=== PATIENT | female | born 1950 | race Caucasian/White ===

== ENCOUNTER 2022-02-04 17:32 | Inpatient (IN) | payer MEDICARE, OTHER ==
[~2022-02-04] VITALS: Ht 177.8 cm; Wt 54.2 kg
[2022-02-04] MEDS ORDERED: ATOR20TA PO (18:17)
[2022-02-04] MEDS ORDERED: ONDA-104 PO (18:17)
[2022-02-04] MEDS ORDERED: ASPI81TA31 PO (18:17)
[2022-02-04] MEDS ORDERED: ASCO500C18 PO (18:17)
[2022-02-04] MEDS ORDERED: METO-358 PO (18:17)
[2022-02-04] MEDS ORDERED: CLOP75TA33 PO (18:17)
[2022-02-04] MEDS ORDERED: PANT40TA49 PO (18:17)
--- NOTE | 2022-02-04 21:50 | NUR ---
pt is placed in room 4a pt was able to ambulate.
[2022-02-04] MEDS ORDERED: ALBUTEROL SULFATE 2.5 MG/3 ML NEBU NEB ONE (22:00)
[2022-02-04] MEDS ORDERED: methylPREDNISolone SOD SUCC 125 MG/2 ML VIAL IV ONE (22:00)
[2022-02-04] MEDS ORDERED: ALBUTEROL SULFATE 2.5 MG/3 ML NEBU ONE (22:08)
[2022-02-04] MEDS ORDERED: methylPREDNISolone SOD SUCC 125 MG/2 ML VIAL ONE (22:14)
[2022-02-04 22:24] LABS: HEMATOCRIT 31.5 % (31.2-41.9); MEAN CORPUSCULAR HEMOGLOBIN 25.5 uug (24.7-32.8); MEAN CORPUSCULAR VOLUME 80.2 fL (75.5-95.3); PLATELET COUNT (AUTO) 373 K/uL (179-408)
[2022-02-04 22:43] LABS: ALANINE AMINOTRANSFERASE 8 U/L (14-59); ALKALINE PHOSPHATASE 91 U/L (50-136); ASPARTATE AMINOTRANSFERASE 7 U/L (15-37); BILIRUBIN,DIRECT 0.1 mg/dL (0.0-0.2); BILIRUBIN,TOTAL 0.3 mg/dL (0.2-1.0); CARBON DIOXIDE 28 mmol/L (21-32); CREATININE 0.7 mg/dL (0.6-1.3); GLUCOSE 108 mg/dL (74-106); TOTAL PROTEIN, SERUM 6.8 g/dL (6.4-8.2); UREA NITROGEN, BLOOD 15 mg/dL (7-18)
[2022-02-04] MEDS ORDERED: FUROSEMIDE 40 MG/4 ML VIAL IV ONE (23:30)
[2022-02-04] MEDS ORDERED: ASPIRIN EC 81 MG TABLET.DR PO SCH (23:30)
[2022-02-04] MEDS ORDERED: ASPIRIN 81 MG TAB.CHEW ONE (23:46)
[2022-02-04 23:52] LABS: CHLORIDE 101 mmol/L (98-107); POTASSIUM 3.9 mmol/L (3.5-5.1)
--- NOTE | 2022-02-05 01:01 | NUR ---
emergency contact len irwin called from number [phone] and would like info to be updated for this.
--- NOTE | 2022-02-05 02:23 | NUR ---
per er export documents clerk waiting on insurance to check if pt can be admitted at this hospital.
--- NOTE | 2022-02-05 06:01 | NUR ---
Rosalind capone for panel call
--- NOTE | 2022-02-05 06:28 | NUR ---
Dr. Taylor on the phone with Rosalind Medeiros NP
[2022-02-05] MEDS ORDERED: ONDANSETRON HCL 4 MG TABLET PO PRN (06:30)
--- NOTE | 2022-02-05 06:33 | NUR ---
Tele bed assigned, [phone]. Will take patient next shift.
[2022-02-05] MEDS ORDERED: REMEDY ESSENTIAL ZINC PASTE 113 GM TP PRN (06:45)
[2022-02-05] MEDS ORDERED: MAGNESIUM HYDROXIDE 30 ML LIQUID UDC PO PRN (06:45)
[2022-02-05] MEDS ORDERED: ONDANSETRON 4 MG/2 ML VIAL IV PRN (06:45)
[2022-02-05] MEDS ORDERED: levoFLOXacin 500 MG/D5W 500 MG in PREMIXED 1 EACH IV SCH (06:45)
[2022-02-05] MEDS ORDERED: PANTOPRAZOLE SODIUM 40 MG TABLET.DR PO ONE (08:15)
[2022-02-05] MEDS ORDERED: levoFLOXacin 500 MG/D5W 100 ML ONE (08:15)
[2022-02-05] MEDS ORDERED: methylPREDNISolone SOD SUCC 40 MG/ML VIAL ONE (08:15)
[2022-02-05] MEDS: PANTOPRAZOLE SODIUM 40 MG TABLET.DR PO SCH (08:20)
[2022-02-05] MEDS: methylPREDNISolone SOD SUCC 40 MG/ML VIAL IV SCH ×3 (08:43→21:51)
--- NOTE | 2022-02-05 08:56 | NUR ---
PT AWAKE, AMBULATED TO BATHROOM, DIAPER CHANGED. TOLERATED BREAKFAST WELL.
--- NOTE | 2022-02-05 08:58 | NUR ---
PT STILL IN ER AWAITING TRANSFER TO TELEMETRY; PT ROOM IS AVAILABLE BUT STAFF STILL REPORTS THEY ARE NOT READY TO TAKE PT; RN ASSEMBLER ENGINE NOTIFIED ABOUT SITUATION. PT GETTING IMPATIENT ABOUT BEING STILL IN THE ER INSTEAD OF PT RM.
[2022-02-05] MEDS ORDERED: METOPROLOL SUCCINATE PO SCH (09:00)
[2022-02-05] MEDS ORDERED: Medication Not On Formulary EA (Ascorbic Acid (Vitamin C) 1 CAP) PO SCH (09:00)
--- NOTE | 2022-02-05 09:07 | NUR ---
REPORT GIVEN TO PEE VO.
[2022-02-05 09:30] VITALS: BP 116/59
--- NOTE | 2022-02-05 09:30 | NUR ---
ADMITTED FROM ER A 71 YO FEMALE WITH ADM DX OF CHF, EXACERBATION COPD AWAKE ALERT AND ORIENTED X3, DENIES SOB OR CHEST PAIN. ROUTINE ADMISSION ASSESSMENT INITIATED. MADE AWARE OF ADMISSION SR ON MONITOR
[2022-02-05] MEDS: CLOPIDOGREL 75 MG TABLET PO SCH (09:48)
[2022-02-05] MEDS: ASPIRIN 81 MG TAB.CHEW PO SCH (09:48)
[2022-02-05 12:00] VITALS: BP 133/74
[2022-02-05] MEDS ORDERED: METO-356 PO (13:18)
--- NOTE | 2022-02-05 13:32 | NUR ---
Social work consult was requested for a patient on medsurg for pre-admission living arrangement. Patient is 71-year-old female admitted to the hospital for congestive heart failure. Patient is alert and oriented X3. Patient could not state the date. Patient presents with congruent mood and full range affect. Patient presents with good judgement and insight. Patient states her primary salesperson flowers is daughters girlfriend, Karly Hurtado ([phone]) and they have a good relationship. Patient also has a supportive brother, Stephen Carranza ([phone]) who lives in [place] and they have a good relationship as well. Patient states that she has been living with her daughter, Mara in an apartment in [place]. 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 Patient has a walker at home and is not currently driving. Patient denies a history of substance abuse. Patient denies a history of psychiatric diagnosis. Patient denies suicidal or homicidal ideation. Patient is open to being discharged to a [place] [facility] facility. This fiction writer spoke with James casework supervisor who will follow up with discharge plan.
[2022-02-05] MEDS: METOPROLOL SUCCINATE XL 25 MG TAB.SR.24H PO SCH (14:33)
[2022-02-05 16:00] VITALS: BP 128/67
--- NOTE | 2022-02-05 16:55 | NUR ---
RESTING COMFORTABLY NO SIGNS OR C/O SOB. SR 86 ON MONITOR
[2022-02-05 20:00] VITALS: BP 120/62
--- NOTE | 2022-02-05 20:00 | NUR ---
PT received resting in bed without distress. Resp is even and unlabored.O2 at 2l/min via NC. pt is a. PT First bag of ivf fl with 20 meq KCL IS infusing as ordered, via L AC. Duran to gravity, Bed is in the lowest position and side rails are up times 4, Aspiration precaution im place. Mitten restraints removed and reapply as per .
[2022-02-05] MEDS: ATORVASTATIN 20 MG TABLET PO SCH (21:51)
--- NOTE | 2022-02-05 22:08 | NUR ---
PT T=ISAWAKE. ALERT AND ORIENTED TIMES 4. PT REFUSES MOM. PT STATES , "I DONT NEED A ;LAXATIVE,HAD A SMALL BM TODAY DONT EACH MUCH AND IS NOT CONSTIPATED." MOM NOT GIVEN.
[2022-02-06 04:00] VITALS: BP 126/70
[2022-02-06 06:50] LABS: HEMATOCRIT 28.4 % (31.2-41.9); MEAN CORPUSCULAR HEMOGLOBIN 25.9 uug (24.7-32.8); MEAN CORPUSCULAR VOLUME 79.4 fL (75.5-95.3); PLATELET COUNT (AUTO) 353 K/uL (179-408)
[2022-02-06] MEDS: methylPREDNISolone SOD SUCC 40 MG/ML VIAL IV SCH ×3 (06:51→22:10)
[2022-02-06] MEDS: PANTOPRAZOLE SODIUM 40 MG TABLET.DR PO SCH (06:51)
[2022-02-06 07:25] LABS: BILIRUBIN,TOTAL 0.2 mg/dL (0.2-1.0); CREATININE 0.7 mg/dL (0.6-1.3); MAGNESIUM 2.1 mg/dL (1.8-2.4); PHOSPHOROUS 4.2 mg/dL (2.5-4.9); POTASSIUM 4.4 mmol/L (3.5-5.1); TOTAL PROTEIN, SERUM 6.3 g/dL (6.4-8.2)
[2022-02-06 07:29] LABS: THYROID STIMULATING HORMONE 0.426 mIU/mL (0.358-3.740)
--- NOTE | 2022-02-06 07:30 | NUR ---
PT IS AWAKE AND IS ALERT AND ORIENTED THIS AM. MEDICATED WITH SOLUMEDROL ORDERED AND PROTONIX ORDERED. PT IS CURTIS NO APPARENT DISTRESS.
--- NOTE | 2022-02-06 08:02 | NUR ---
AWAKE ALERT AND ORIENTED X3 IN BED WITH NO SS OF PAIN OR DISTRESS. SR ON MONITOR
[2022-02-06] MEDS: ASCORBIC ACID 500 MG TABLET PO SCH (09:19)
[2022-02-06] MEDS: ASPIRIN 81 MG TAB.CHEW PO SCH (09:19)
[2022-02-06] MEDS: CLOPIDOGREL 75 MG TABLET PO SCH (09:19)
[2022-02-06] MEDS: levoFLOXacin 500 MG/D5W 500 MG in PREMIXED 1 EACH IV SCH (09:24)
[2022-02-06] MEDS: METOPROLOL SUCCINATE XL 25 MG TAB.SR.24H PO SCH (09:25)
[2022-02-06] MEDS: CYANOCOBALAMIN 1000 MCG/ML VIAL IM SCH (09:30)
[2022-02-06 11:08] VITALS: BP 142/69
--- NOTE | 2022-02-06 12:00 | NUR ---
SEEN BY PHYSICAL THERAPY FOR THERAPEUTIC EXERCISES SEE NOTES
[2022-02-06] MEDS: PROTEIN SUPPLEMENT (PROSTAT) 30 ML LIQUID PO SCH (15:00)
[2022-02-06] MEDS: GLUCERNA SHAKE 237 ML CAN PO SCH ×2 (15:00→18:07)
[2022-02-06 15:12] VITALS: BP 144/65
--- NOTE | 2022-02-06 19:00 | NUR ---
RECEIVED PATIENT IN BED. AAOX4, NOTED TO BE UPSET AND REPORTED THAT SHE HAS BEEN REQUESTING FOR NICOTINE PATCH. FAMILY AT BEDSIDE, FRUSTRATED AND YELLING AT NURSE. NURSE ATTEMPTED TO DE-ESCALATE AND ADVISED PATIENT MD WILL BE NOTIFIED, PATIENT VERBALIZED UNDERSTANDING. IV ACCESS PATENT AND INTACT. SAFETY PRECAUTIONS INITIATED. WILL CONTINUE TO MONITOR.
--- NOTE | 2022-02-06 19:20 | NUR ---
DISCHARGE PLANNING INITIATED, SEE WEBSITE ADMIN NOTES
--- NOTE | 2022-02-06 19:37 | NUR ---
PATIENT REQUESTING FOR NICOTINE PATCH. PATIENT ADVISED SHE SMOKES MORE THAN A PACK OF CIGARETTES A DAY. NOTIFIED DR. GONZALEZ. DR GONZALEZ ORDERED NICOTINE PATCH, TD, 21MG/Q24.
[2022-02-06] MEDS: ATORVASTATIN 20 MG TABLET PO SCH (20:02)
[2022-02-06] MEDS: NICOTINE 21 MG/24HR PATCH TD SCH (20:02)
[2022-02-06 20:39] VITALS: BP 131/66
[2022-02-07 04:32] VITALS: BP 144/76
[2022-02-07] MEDS: methylPREDNISolone SOD SUCC 40 MG/ML VIAL IV SCH ×3 (05:42→21:42)
[2022-02-07] MEDS: PANTOPRAZOLE SODIUM 40 MG TABLET.DR PO SCH (06:02)
--- NOTE | 2022-02-07 06:19 | NUR ---
PATIENT SLEPT THROUGH THE NIGHT WITH NO COMPLAINTS. DENIES SOB, CHEST PAIN OR DIZZINESS AT THIS TIME. COMPLIANT WITH MEDICATION REGIMEN. IV ACCESS PATENT AND INTACT. SAFETY PRECAUTIONS MAINTAINED. WILL ENDORSE TO DAY SHIFT.
[2022-02-07] MEDS: PROTEIN SUPPLEMENT (PROSTAT) 30 ML LIQUID PO SCH (09:00)
[2022-02-07] MEDS: ASPIRIN 81 MG TAB.CHEW PO SCH (09:00)
[2022-02-07] MEDS: CLOPIDOGREL 75 MG TABLET PO SCH (09:00)
[2022-02-07] MEDS: GLUCERNA SHAKE 237 ML CAN PO SCH ×2 (09:00→16:14)
[2022-02-07] MEDS: ASCORBIC ACID 500 MG TABLET PO SCH (09:01)
[2022-02-07] MEDS: NICOTINE 21 MG/24HR PATCH TD SCH (09:01)
[2022-02-07] MEDS: CYANOCOBALAMIN 1000 MCG/ML VIAL IM SCH (09:01)
[2022-02-07] MEDS: levoFLOXacin 500 MG/D5W 500 MG in PREMIXED 1 EACH IV SCH (09:02)
[2022-02-07] MEDS: METOPROLOL SUCCINATE XL 25 MG TAB.SR.24H PO SCH (09:14)
[2022-02-07 11:11] VITALS: BP 148/83
--- NOTE | 2022-02-07 11:46 | NUR ---
Pt is a/o x 4, ambulatory with standby assist. Pt is cooperative with care. Midline ordered and placed, right ua 18g. intact and patent. peripheral iv removed due to leaking. Comfort measures provided, call light within reach. Will continue to monitor.
[2022-02-07 15:17] VITALS: BP 144/52
[2022-02-07 15:19] VITALS: BP 127/69
--- NOTE | 2022-02-07 19:00 | NUR ---
pT COMPLAINED OF DIFFICULTY CATCHING BREATH, NOTIFIED MD. VITALS STABLE SPO2 98% ON ROOM AIR. MD PLACED ORDER FOR PRN BREATHING TX AND SCHEDULED DOSE OF BREO. EDUCATED PT ON BREATHING. WILL ENDORSE TO WELFARE CENTRE MANAGER
--- NOTE | 2022-02-07 19:40 | NUR ---
RECEIVED PATIENT IN BED. AAOX4. PATIENT COMPLAINED OF SHORTNESS OF BREATH. O2 SAT 98%. ADVISED PATIENT TO DO DEEP BREATHING WHILE WAITING FOR RESPIRATORY THERAPIST. IV ACCESS PATENT AND INTACT. SAFETY PRECAUTIONS INITIATED. WILL CONTINUE TO MONITOR.
[2022-02-07] MEDS: IPRATROPIUM BROMIDE 0.5 MG/2.5 ML NEBU NEB PRN (19:58)
[2022-02-07] MEDS: ALBUTEROL SULFATE 2.5 MG/3 ML NEBU NEB PRN (19:59)
[2022-02-07] MEDS: ATORVASTATIN 20 MG TABLET PO SCH (20:41)
[2022-02-07 20:47] VITALS: BP 131/65
[2022-02-07] MEDS ORDERED: FLUTICASONE/VILANTEROL 1 EACH BLST.W.DEV ONE (21:38)
[2022-02-07] MEDS: FLUTICASONE/VILANTEROL 1 EACH BLST.W.DEV INH SCH (21:54)
[2022-02-08] MEDS: ACETAMINOPHEN 325 MG TABLET PO PRN (02:13)
[2022-02-08 04:45] VITALS: BP 125/69
[2022-02-08] MEDS: methylPREDNISolone SOD SUCC 40 MG/ML VIAL IV SCH ×2 (05:35→14:19)
--- NOTE | 2022-02-08 05:53 | NUR ---
PATIENT SLEPT INTERMITTENTLY THROUGH THE NIGHT. COMPLIANT WITH MEDICATION REGIMEN. NO ACUTE DISTRESS NOTED AT THIS TIME. ALL NEEDS ATTENDED TO AND MET. SAFETY AND ASPIRATION PRECAUTIONS MAINTAINED.
[2022-02-08 06:37] LABS: HEMATOCRIT 28.4 % (31.2-41.9); MEAN CORPUSCULAR HEMOGLOBIN 25.9 uug (24.7-32.8); MEAN CORPUSCULAR VOLUME 80.5 fL (75.5-95.3); PLATELET COUNT (AUTO) 316 K/uL (179-408)
[2022-02-08 06:52] LABS: CREATININE 0.7 mg/dL (0.6-1.3); PHOSPHOROUS 3.5 mg/dL (2.5-4.9); POTASSIUM 4.3 mmol/L (3.5-5.1)
[2022-02-08] MEDS: PROTEIN SUPPLEMENT (PROSTAT) 30 ML LIQUID PO SCH (07:56)
[2022-02-08] MEDS: GLUCERNA SHAKE 237 ML CAN PO SCH ×2 (07:56→16:16)
[2022-02-08] MEDS: ASCORBIC ACID 500 MG TABLET PO SCH (08:02)
[2022-02-08] MEDS: CLOPIDOGREL 75 MG TABLET PO SCH (08:02)
[2022-02-08] MEDS: NICOTINE 21 MG/24HR PATCH TD SCH (08:02)
[2022-02-08] MEDS: METOPROLOL SUCCINATE XL 25 MG TAB.SR.24H PO SCH (08:02)
[2022-02-08] MEDS: CYANOCOBALAMIN 1000 MCG/ML VIAL IM SCH (08:03)
[2022-02-08] MEDS: levoFLOXacin 500 MG/D5W 500 MG in PREMIXED 1 EACH IV SCH (08:22)
[2022-02-08] MEDS: FLUTICASONE/VILANTEROL 1 EACH BLST.W.DEV INH SCH (08:30)
[2022-02-08] MEDS ORDERED: SOD FERRIC GLUC COMPLX/SUCROSE 125 MG in IV NORMAL SALINE 100 ML IV SCH (10:00)
[2022-02-08 11:35] VITALS: BP 131/71
[2022-02-08 16:11] VITALS: BP 131/80
[2022-02-08 20:00] VITALS: BP 157/68
[2022-02-08] MEDS: ATORVASTATIN 20 MG TABLET PO SCH (22:42)
[2022-02-09 04:00] VITALS: BP 145/72
--- NOTE | 2022-02-09 05:27 | NUR ---
Slept throughout the night No distress noted. Able to make needs known. Able to ambulate with assist. Safety maintained throughout shift. Will endorse to day shift.
[2022-02-09] MEDS: FLUTICASONE/VILANTEROL 1 EACH BLST.W.DEV INH SCH (08:16)
[2022-02-09] MEDS: NICOTINE 21 MG/24HR PATCH TD SCH (08:16)
[2022-02-09] MEDS: CLOPIDOGREL 75 MG TABLET PO SCH (08:17)
[2022-02-09] MEDS: CYANOCOBALAMIN 1000 MCG/ML VIAL IM SCH (08:17)
[2022-02-09] MEDS: ASCORBIC ACID 500 MG TABLET PO SCH (08:17)
[2022-02-09] MEDS: PROTEIN SUPPLEMENT (PROSTAT) 30 ML LIQUID PO SCH (08:17)
[2022-02-09] MEDS: METOPROLOL SUCCINATE XL 25 MG TAB.SR.24H PO SCH (08:17)
[2022-02-09] MEDS: GLUCERNA SHAKE 237 ML CAN PO SCH ×2 (08:17→16:34)
[2022-02-09] MEDS: levoFLOXacin 500 MG TABLET PO SCH (08:20)
[2022-02-09] MEDS: methylPREDNISolone SOD SUCC 40 MG/ML VIAL IV SCH ×2 (08:43→20:27)
[2022-02-09] MEDS ORDERED: SOD FERRIC GLUC COMPLX/SUCROSE 125 MG in IV NORMAL SALINE 100 ML IV ONE (10:45)
[2022-02-09 11:01] VITALS: BP 19/47
[2022-02-09 11:30] VITALS: BP 116/72
[2022-02-09 15:13] VITALS: BP 110/75
[2022-02-09] MEDS: IPRATROPIUM BROMIDE 0.5 MG/2.5 ML NEBU NEB PRN (19:25)
[2022-02-09] MEDS: ALBUTEROL SULFATE 2.5 MG/3 ML NEBU NEB PRN (19:25)
[2022-02-09 20:00] VITALS: BP 115/84
[2022-02-09] MEDS: ATORVASTATIN 20 MG TABLET PO SCH (20:27)
[2022-02-10] MEDS: ACETAMINOPHEN 325 MG TABLET PO PRN (03:14)
--- NOTE | 2022-02-10 05:55 | NUR ---
Slept throughout the night. No distress noted. Able to make needs known. Able to ambulate. Will endorse to day shift
[2022-02-10] MEDS: PROTEIN SUPPLEMENT (PROSTAT) 30 ML LIQUID PO SCH (08:00)
[2022-02-10] MEDS: levoFLOXacin 500 MG TABLET PO SCH (08:05)
[2022-02-10] MEDS: ASCORBIC ACID 500 MG TABLET PO SCH (08:05)
[2022-02-10] MEDS: GLUCERNA SHAKE 237 ML CAN PO SCH ×2 (08:05→17:19)
[2022-02-10] MEDS: NICOTINE 21 MG/24HR PATCH TD SCH (08:05)
[2022-02-10] MEDS: CLOPIDOGREL 75 MG TABLET PO SCH (08:05)
[2022-02-10] MEDS: METOPROLOL SUCCINATE XL 25 MG TAB.SR.24H PO SCH (08:05)
[2022-02-10] MEDS: CYANOCOBALAMIN 1000 MCG/ML VIAL IM SCH (08:06)
[2022-02-10] MEDS: methylPREDNISolone SOD SUCC 40 MG/ML VIAL IV SCH (08:24)
[2022-02-10] MEDS: FLUTICASONE/VILANTEROL 1 EACH BLST.W.DEV INH SCH (09:14)
[2022-02-10] MEDS ORDERED: FLUT1BLS INH (10:43)
[2022-02-10] MEDS ORDERED: NICO-780 TD (10:43)
[2022-02-10] MEDS ORDERED: PRED50TA PO (10:43)
[2022-02-10] MEDS ORDERED: ALBU2.5V7 NEB (10:43)
[2022-02-10 11:15] VITALS: BP 104/57
[2022-02-10 15:07] VITALS: BP 153/74
--- NOTE | 2022-02-10 19:11 | NUR ---
dc orders received noted and carried out,dc instruction and education given to the pt.dc midline per md orders.pt left the facility via ambulances in stable condition ,3 times call the [facility] for report no body answers leave the massage and phone number with cinder pit crane operator
== END 2022-02-10 19:25 | DRG 191 ==
LOC: ER 17:40 → TELE3 02-05 09:09 → MEDSURG3 02-06 10:30
PROVIDERS: ADMIT Internal Medicine; ATTEND Internal Medicine
PROC: 05HB33Z Insertion of Infusion Device into Right Basilic Vein, Percutaneous Approach (ICD-10-PCS; principal; 2022-02-07)
DX: J44.1 Chronic obstructive pulmonary disease with (acute) exacerbation (principal); D68.59 Other primary thrombophilia; J98.11 Atelectasis; E87.1 Hypo-osmolality and hyponatremia; J44.0 Chronic obstructive pulmonary disease with (acute) lower respiratory infection; J20.8 Acute bronchitis due to other specified organisms; F17.210 Nicotine dependence, cigarettes, uncomplicated; Z99.81 Dependence on supplemental oxygen; Z20.822 Contact with and (suspected) exposure to COVID-19; I25.5 Ischemic cardiomyopathy; M11.261 Other chondrocalcinosis, right knee; I34.0 Nonrheumatic mitral (valve) insufficiency; Z59.01 Sheltered homelessness; M06.9 Rheumatoid arthritis, unspecified; I11.0 Hypertensive heart disease with heart failure; I50.9 Heart failure, unspecified; I25.10 Atherosclerotic heart disease of native coronary artery without angina pectoris; Z95.1 Presence of aortocoronary bypass graft; Z74.09 Other reduced mobility; E53.8 Deficiency of other specified B group vitamins; M17.11 Unilateral primary osteoarthritis, right knee; Z79.02 Long term (current) use of antithrombotics/antiplatelets; D50.9 Iron deficiency anemia, unspecified; R09.02 Hypoxemia; Z79.82 Long term (current) use of aspirin; Z90.710 Acquired absence of both cervix and uterus; Z90.49 Acquired absence of other specified parts of digestive tract; E86.1 Hypovolemia
CPT/HCPCS: 36415; 71045; 82378; 83550; 83735; 84100; 84443; 84484; 85025; 93005; 93307; 94664; 97161; A4663; G0378; J1940; J1956; J2916; J2920; J2930; J3420; J3590

== ENCOUNTER 2024-01-10 23:21 | Inpatient (IN) | payer MEDICARE, OTHER ==
[~2024-01-10] VITALS: Ht 177.8 cm; Wt 57.3 kg
[2024-01-10] MEDS: CLONIDINE HCL 0.1 MG TABLET PO ONE (00:05)
[~2024-01-10 23:21] MED LIST: ALBU2.5V7 NEB; ASCO500C18 PO; ASPI81TA31 PO; ATOR20TA PO; CLOP75TA33 PO; FLUT1BLS INH; METO-356 PO; NICO-780 TD; ONDA-104 PO; PANT40TA49 PO; PRED50TA PO
[2024-01-10 23:51] LABS: BASOPHILS % (AUTO) 0.7 % (0.0-2.0); EOSINOPHILS # (AUTO) 0.3 K/uL (0.0-0.7); EOSINOPHILS % (AUTO) 4.2 % (0.0-7.0); HEMATOCRIT 36.2 % (31.2-41.9); LYMPHOCYTES # (AUTO) 2.2 K/uL (0.8-4.8); LYMPHOCYTES % (AUTO) 31.3 % (20.5-51.5); MEAN CORPUSCULAR HEMOGLOBIN 30.4 uug (24.7-32.8); MEAN CORPUSCULAR HGB CONC 33 g/dL (32.3-35.6); MEAN CORPUSCULAR VOLUME 91.2 fL (75.5-95.3); MONOCYTES # (AUTO) 1.1 K/uL (0.1-1.30); MONOCYTES % (AUTO) 15.8 % (0.0-11.0); NEUTROPHILS # (AUTO) 3.4 K/uL (1.8-8.9); PLATELET COUNT (AUTO) 240 K/uL (179-408); RED BLOOD CELL COUNT(AUTO) 3.97 MIL/uL (3.63-4.92); RED CELL DISTRIBUTION WIDTH 13.8 % (12.3-17.7); WHITE BLOOD COUNT (AUTO) 7.1 K/uL (3.8-11.8)
[2024-01-10 23:52] LABS: DIFFERENTIAL COMMENT 1
[2024-01-10] MEDS ORDERED: CLONIDINE HCL 0.1 MG TABLET ONE (23:57)
[2024-01-11 00:08] LABS: CALCIUM 9.2 mg/dL (8.5-10.1); CARBON DIOXIDE 28 mmol/L (21-32); CHLORIDE 99 mmol/L (98-107); CREATININE 0.9 mg/dL (0.6-1.3); GLUCOSE 100 mg/dL (74-106); SODIUM SERUM 136 mmol/L (136-145); UREA NITROGEN, BLOOD 21 mg/dL (7-18)
[2024-01-11 00:14] LABS: ALANINE AMINOTRANSFERASE 24 U/L (14-59); ALBUMIN 3.9 g/dL (3.4-5.0); ALKALINE PHOSPHATASE 119 U/L (50-136); ASPARTATE AMINOTRANSFERASE 10 U/L (15-37); BILIRUBIN,DIRECT 0.1 mg/dL (0.0-0.2); BILIRUBIN,TOTAL 0.4 mg/dL (0.2-1.0); TOTAL PROTEIN, SERUM 7.3 g/dL (6.4-8.2)
[2024-01-11] MEDS ORDERED: ACET325T53 PO (00:27)
[2024-01-11] MEDS ORDERED: CLON-418 PO (00:27)
[2024-01-11] MEDS ORDERED: METO50TA16 PO (00:27)
[2024-01-11] MEDS ORDERED: NA P133E RC (00:27)
[2024-01-11] MEDS ORDERED: FAMO40TA7 PO (00:27)
[2024-01-11] MEDS ORDERED: CHOL10005 PO (00:27)
[2024-01-11] MEDS ORDERED: HYDR-3972 PO (00:27)
[2024-01-11] MEDS ORDERED: PREG50CA PO (00:27)
[2024-01-11] MEDS ORDERED: MAGN30OR PO (00:27)
[2024-01-11] MEDS ORDERED: MELO-107 PO (00:27)
[2024-01-11] MEDS ORDERED: MULT-1045 PO (00:27)
[2024-01-11] MEDS ORDERED: LIDO30AD10 TP (00:27)
[2024-01-11 00:52] LABS: EOSINOPHILS % (MANUAL) 5 % (0-8); LYMPHOCYTES % (MANUAL) 31 % (20-40); MONOCYTES % (MANUAL) 15 % (2-10); NEUTROPHILS % (MANUAL) 49 % (42-75); PLATELET ESTIMATE ADEQUATE
[2024-01-11 00:53] LABS: ANISOCYTOSIS 1+
[2024-01-11] MEDS ORDERED: MAGNESIUM HYDROXIDE 30 ML LIQUID UDC PO PRN ×2 (03:15→12:45)
[2024-01-11] MEDS ORDERED: REMEDY ESSENTIAL ZINC PASTE 113 GM TP PRN (03:15)
[2024-01-11] MEDS ORDERED: ONDANSETRON 4 MG/2 ML VIAL IV PRN (03:15)
[2024-01-11 04:00] VITALS: BP 140/77; TEMP 98; O2SAT 95
[2024-01-11] MEDS: ENOXAPARIN SODIUM 40 MG/0.4 ML DISP.SYRIN SQ SCH (04:24)
[2024-01-11] MEDS: IV NS 1000 ML 1,000 ML IV PRN (04:53)
[2024-01-11] MEDS: PANTOPRAZOLE SODIUM 40 MG TABLET.DR PO SCH (06:06)
[2024-01-11 06:56] LABS: BASOPHILS # (AUTO) 0.1 K/UL (0.0-0.2); BASOPHILS % (AUTO) 1.1 % (0.0-2.0); EOSINOPHILS # (AUTO) 0.3 K/uL (0.0-0.7); HEMATOCRIT 34.6 % (31.2-41.9); HEMOGLOBIN 11.4 g/dL (10.9-14.3); LYMPHOCYTES # (AUTO) 1.6 K/uL (0.8-4.8); LYMPHOCYTES % (AUTO) 28.7 % (20.5-51.5); MEAN CORPUSCULAR HGB CONC 33 g/dL (32.3-35.6); MEAN CORPUSCULAR VOLUME 91.1 fL (75.5-95.3); MONOCYTES # (AUTO) 0.9 K/uL (0.1-1.30); MONOCYTES % (AUTO) 15.9 % (0.0-11.0); NEUTROPHILS # (AUTO) 2.7 K/uL (1.8-8.9); NEUTROPHILS % (AUTO) 48.3 % (38.5-71.5); PLATELET COUNT (AUTO) 236 K/uL (179-408); RED CELL DISTRIBUTION WIDTH 13.8 % (12.3-17.7); WHITE BLOOD COUNT (AUTO) 5.5 K/uL (3.8-11.8)
[2024-01-11 07:19] LABS: DIFFERENTIAL COMMENT 1
[2024-01-11 07:32] LABS: THYROID STIMULATING HORMONE 1.399 mIU/mL (0.358-3.740)
[2024-01-11 07:47] LABS: ALANINE AMINOTRANSFERASE 27 U/L (14-59); ALBUMIN 3.6 g/dL (3.4-5.0); ALKALINE PHOSPHATASE 97 U/L (50-136); ASPARTATE AMINOTRANSFERASE 5 U/L (15-37); BILIRUBIN,DIRECT 0.1 mg/dL (0.0-0.2); BILIRUBIN,TOTAL 0.4 mg/dL (0.2-1.0); CALCIUM 9.2 mg/dL (8.5-10.1); CARBON DIOXIDE 26 mmol/L (21-32); CHLORIDE 101 mmol/L (98-107); CREATININE 0.9 mg/dL (0.6-1.3); GLUCOSE 95 mg/dL (74-106); MAGNESIUM 2.2 mg/dL (1.8-2.4); PHOSPHOROUS 4.5 mg/dL (2.5-4.9); POTASSIUM 3.6 mmol/L (3.5-5.1); SODIUM SERUM 136 mmol/L (136-145); TOTAL PROTEIN, SERUM 6.9 g/dL (6.4-8.2); UREA NITROGEN, BLOOD 20 mg/dL (7-18)
[2024-01-11 08:20] LABS: LYMPHOCYTES % (MANUAL) 0 % (20-40); NEUTROPHILS % (MANUAL) 0 % (42-75)
[2024-01-11 09:28] LABS: *BILIRUBIN,URIN NEGATIVE (NEGATIVE); *BLOOD, URINE NEGATIVE (NEGATIVE); *CLARITY,URINE CLEAR (CLEAR); *COLOR,URINE YELLOW (YELLOW); *KETONES,URINE NEGATIVE (NEGATIVE); *PROTEIN,URINE NEGATIVE (NEGATIVE); *UROBILINOGEN,URINE 0.2 E.U./dl (NORMAL); LEUKOCYTE ESTERASE ,URINE NEGATIVE (NEGATIVE); NITRITE, URINE NEGATIVE (NEGATIVE); PH,URINE 5.5 (5.0-8.0); UGLUCOSE NEGATIVE (NEGATIVE)
[2024-01-11] MEDS ORDERED: ACET-73 PO ×2 (10:59)
[2024-01-11] MEDS ORDERED: BISA10SU95 RC (10:59)
[2024-01-11] MEDS ORDERED: METO25TA6 PO (10:59)
[2024-01-11] MEDS ORDERED: FERR325T24 PO (10:59)
[2024-01-11] MEDS ORDERED: NICO-625 TD (10:59)
[2024-01-11] MEDS ORDERED: DICL100G31 TP (10:59)
[2024-01-11 12:06] VITALS: BP 156/78; TEMP 98.2; O2SAT 95
[2024-01-11] MEDS ORDERED: FLEET ENEMA 133 ML BOTTLE RC PRN (12:15)
[2024-01-11] MEDS ORDERED: Medication Not On Formulary EA (Magnesium Hydroxide/Al Hydrox (Mag-Al Liquid) 30 ML) PO PRN (12:15)
[2024-01-11] MEDS ORDERED: BISACODYL 10 MG SUPP.RECT RC PRN (12:15)
[2024-01-11 12:31] VITALS: BP 160/62; TEMP 97.9; O2SAT 96
[2024-01-11] MEDS: METOPROLOL TARTRATE 25 MG TABLET PO SCH (13:18)
[2024-01-11] MEDS: NICOTINE 14 MG/24HR PATCH TD SCH (13:19)
[2024-01-11] MEDS: CLOPIDOGREL 75 MG TABLET PO SCH (13:19)
[2024-01-11] MEDS: LIDOCAINE 5% PATCH TD SCH (13:19)
[2024-01-11] MEDS: PREGABALIN 50 MG CAPSULE PO SCH (13:19)
[2024-01-11] MEDS: ASCORBIC ACID 500 MG TABLET PO SCH (13:20)
[2024-01-11] MEDS: MULTIVITAMINS,THERAPEUTIC TABLET PO SCH (13:25)
[2024-01-11 16:16] VITALS: BP 159/74; TEMP 98; O2SAT 94
[2024-01-11] MEDS: ACETAMINOPHEN 325 MG TABLET PO PRN (16:26)
[2024-01-11] MEDS: ATORVASTATIN 10 MG TABLET PO SCH (20:30)
[2024-01-11 20:31] VITALS: BP 151/61; TEMP 97.6; O2SAT 96
[2024-01-11] MEDS ORDERED: ATORVASTATIN 20 MG TABLET PO SCH (21:00)
[2024-01-12] MEDS: hydrALAZINE HCL 25 MG TABLET PO PRN (05:39)
[2024-01-12 06:11] VITALS: BP 165/69; TEMP 97.6; O2SAT 95
[2024-01-12] MEDS: PANTOPRAZOLE SODIUM 40 MG TABLET.DR PO SCH (06:38)
[2024-01-12] MEDS: MELOXICAM 7.5 MG TABLET PO SCH (08:35)
[2024-01-12] MEDS ORDERED: hydrALAZINE HCL 25 MG TABLET PO PRN (09:00)
[2024-01-12] MEDS ORDERED: Medication Not On Formulary EA (Multivitamin (Multi-Vitamin Daily) 1 TAB) PO SCH (09:00)
[2024-01-12] MEDS ORDERED: Medication Not On Formulary EA (Ascorbic Acid (Vitamin C) 1 CAP) PO SCH (09:00)
[2024-01-12] MEDS: AMLODIPINE 5 MG TABLET PO SCH ×2 (09:03→20:43)
[2024-01-12] MEDS: METOPROLOL TARTRATE 25 MG TABLET PO ONE (09:13)
[2024-01-12 11:09] VITALS: BP 173/77; TEMP 98.1; O2SAT 99
[2024-01-12] MEDS: ENSURE ENLIVE (VAN) 240 ML LIQUID PO SCH (14:39)
[2024-01-12 15:18] VITALS: BP 145/71; TEMP 98.1; O2SAT 97
[2024-01-12 19:30] VITALS: BP 156/85; TEMP 98; O2SAT 96
[2024-01-12] MEDS: METOPROLOL TARTRATE 50 MG TABLET PO SCH (20:43)
[2024-01-13] MEDS: HYDROCODONE/APAP 5-325MG TABLET PO PRN (03:34)
[2024-01-13 06:35] VITALS: BP 144/74; TEMP 97.7; O2SAT 95
[2024-01-13 07:17] LABS: BASOPHILS % (AUTO) 0.8 % (0.0-2.0); EOSINOPHILS # (AUTO) 0.2 K/uL (0.0-0.7); EOSINOPHILS % (AUTO) 3.7 % (0.0-7.0); HEMATOCRIT 37.9 % (31.2-41.9); HEMOGLOBIN 12.5 g/dL (10.9-14.3); LYMPHOCYTES # (AUTO) 1.7 K/uL (0.8-4.8); LYMPHOCYTES % (AUTO) 28.4 % (20.5-51.5); MEAN CORPUSCULAR HEMOGLOBIN 29.9 uug (24.7-32.8); MEAN CORPUSCULAR HGB CONC 33 g/dL (32.3-35.6); MEAN CORPUSCULAR VOLUME 90.5 fL (75.5-95.3); MONOCYTES % (AUTO) 16.5 % (0.0-11.0); NEUTROPHILS % (AUTO) 50.6 % (38.5-71.5); PLATELET COUNT (AUTO) 253 K/uL (179-408); RED BLOOD CELL COUNT(AUTO) 4.18 MIL/uL (3.63-4.92); RED CELL DISTRIBUTION WIDTH 13.6 % (12.3-17.7)
[2024-01-13 07:24] LABS: DIFFERENTIAL COMMENT 1
[2024-01-13 07:27] LABS: CALCIUM 9.4 mg/dL (8.5-10.1); CREATININE 0.6 mg/dL (0.6-1.3); MAGNESIUM 2.2 mg/dL (1.8-2.4); PHOSPHOROUS 3.5 mg/dL (2.5-4.9); POTASSIUM 3.8 mmol/L (3.5-5.1)
[2024-01-13] MEDS: NIFEdipine XL 30 MG TABSR PO SCH (08:47)
[2024-01-13 11:31] VITALS: BP 110/70
[2024-01-13 11:44] VITALS: BP 110/70; TEMP 96.2; O2SAT 95
[2024-01-13 12:40] LABS: EOSINOPHILS % (MANUAL) 2 % (0-8); LYMPHOCYTES % (MANUAL) 27 % (20-40); MONOCYTES % (MANUAL) 13 % (2-10); NEUTROPHILS % (MANUAL) 58 % (42-75); PLATELET ESTIMATE ADEQUATE
[2024-01-13 12:42] LABS: ANISOCYTOSIS 1+
[2024-01-13 12:44] LABS: TEAR DROP CELLS OCC
[2024-01-13 16:18] VITALS: BP 106/53; TEMP 98; O2SAT 94
[2024-01-13 19:45] VITALS: BP 116/68; TEMP 97.6; O2SAT 95
[2024-01-14 05:42] VITALS: BP 125/53; TEMP 98; O2SAT 95
[2024-01-14] MEDS ORDERED: NIFE-35 PO (09:00)
[2024-01-14 11:39] VITALS: BP 129/66; TEMP 97.7; O2SAT 97
== END 2024-01-14 12:50 | DRG 304 ==
LOC: ER 23:32 → MEDSURG3 01-11 02:40
PROVIDERS: ADMIT Nurse Practitioner Family; ATTEND Internal Medicine
DX: I16.0 Hypertensive urgency (principal); G93.41 Metabolic encephalopathy; E44.0 Moderate protein-calorie malnutrition; Z68.1 Body mass index [BMI] 19.9 or less, adult; R53.1 Weakness; F17.210 Nicotine dependence, cigarettes, uncomplicated; M06.9 Rheumatoid arthritis, unspecified; J44.9 Chronic obstructive pulmonary disease, unspecified; I10 Essential (primary) hypertension; I25.10 Atherosclerotic heart disease of native coronary artery without angina pectoris; I25.2 Old myocardial infarction; M17.0 Bilateral primary osteoarthritis of knee; K21.9 Gastro-esophageal reflux disease without esophagitis; E11.42 Type 2 diabetes mellitus with diabetic polyneuropathy; E78.5 Hyperlipidemia, unspecified; Z79.02 Long term (current) use of antithrombotics/antiplatelets; Z79.51 Long term (current) use of inhaled steroids; Z79.82 Long term (current) use of aspirin; Z79.899 Other long term (current) drug therapy; E88.09 Other disorders of plasma-protein metabolism, not elsewhere classified
CPT/HCPCS: 36415; 70030-TC; 70450; 71045; 73560; 83735; 84100; 84443; 84484; 85025; 93005; A4606; A4663; G0378; J1650; J7040